=== PATIENT | male | born 1965 | race African-American/Black ===

== ENCOUNTER 2016-09-01 15:46 | Emergency (ER) | payer MEDICARE, MEDICAID ==
[~2016-09-01] VITALS: Ht 177.8 cm; Wt 111.0 kg
[~2016-09-01 15:46] MED LIST: NORCO
[2016-09-01] MEDS ORDERED: KETOROLAC 60MG/2ML VIAL IM ONE (18:45)
[2016-09-01 19:15] VITALS: BP 137/81
== END 2016-09-01 20:02 | disposition home or self-care (01) ==
LOC: ER 15:47
DX: S16.1XXA Strain of muscle, fascia and tendon at neck level, initial encounter (principal); Z87.891 Personal history of nicotine dependence; V49.60XA Unspecified car occupant injured in collision with unspecified motor vehicles in traffic accident, initial encounter; Y93.89 Activity, other specified; Y99.8 Other external cause status; Y92.89 Other specified places as the place of occurrence of the external cause
CPT/HCPCS: 72040; 96372; 99284; J1885

== ENCOUNTER 2019-07-20 08:51 | Emergency (ER) | payer MEDICARE, MEDICAID ==
[~2019-07-20] VITALS: Ht 180.3 cm; Wt 100.0 kg
[2019-07-20] MEDS ORDERED: NAPROXEN 375MG TABLET PO ONE (11:15)
[2019-07-20] MEDS ORDERED: TETANUS, DIPHTHERIA, PERTUSSIS VAC/PF 0.5ML (>7YR OLD) IM ONE (11:15)
[2019-07-20] MEDS ORDERED: BACITRACIN 15GM TUBE TOP ONE (11:15)
[2019-07-20 11:40] VITALS: BP 148/85
== END 2019-07-20 11:42 | disposition home or self-care (01) ==
LOC: ER 08:51
DX: S91.331A Puncture wound without foreign body, right foot, initial encounter (principal); W52.XXXA Crushed, pushed or stepped on by crowd or human stampede, initial encounter; Y93.89 Activity, other specified; Y92.89 Other specified places as the place of occurrence of the external cause; Y99.8 Other external cause status; Z98.890 Other specified postprocedural states
CPT/HCPCS: 90471; 90715; 99283

== ENCOUNTER 2022-03-09 21:11 | Emergency (ER) | payer OTHER, MEDICAID ==
[~2022-03-09] VITALS: Ht 177.8 cm; Wt 105.0 kg
[2022-03-10] MEDS ORDERED: KETOROLAC 30MG/ML VIAL IV ONE (02:00)
[2022-03-10 02:28] LABS: CLARITY URINE CLEAR (CLEAR); COLOR URINE YELLOW (YELLOW); KETONES URINE TRACE (NEGATIVE); LEUKOCYTE ESTERASE URINE NEGATIVE (NEGATIVE); NITRITE URINE NEGATIVE (NEGATIVE); OCCULT BLOOD URINE NEGATIVE (NEGATIVE); PH URINE 5.5 (4.5-8.0); PROTEIN URINE TRACE (NEGATIVE); SPECIFIC GRAVITY URINE 1.024 (1.005-1.030); UROBILINOGEN URINE 0.2 E.U./dL (0.2-1.0)
[2022-03-10] MEDS ORDERED: ACET-2708 MT (02:44)
[2022-03-10 02:46] VITALS: BP 130/88
== END 2022-03-10 03:12 | disposition home or self-care (01) ==
LOC: ER 21:11
DX: G89.21 Chronic pain due to trauma (principal); M54.9 Dorsalgia, unspecified; Z87.828 Personal history of other (healed) physical injury and trauma; Z98.890 Other specified postprocedural states
CPT/HCPCS: 81003; 96374; 99283; J1885

== ENCOUNTER 2022-12-25 23:10 | Emergency (ER) | payer BC, MEDICAID ==
[~2022-12-25] VITALS: Ht 177.8 cm; Wt 104.0 kg
[~2022-12-25 23:10] MED LIST changes: +ACET-2708 MT
[2022-12-25 23:25] VITALS: O2SAT 99
[2022-12-26] MEDS ORDERED: NAPR-679 MT (02:20)
[2022-12-26] MEDS ORDERED: ACET-2708 MT (02:20)
[2022-12-26] MEDS ORDERED: LIDOCAINE 5% PATCH TOP SCH (02:30)
[2022-12-26] MEDS ORDERED: ACETAMINOPHEN 325MG TABLET PO ONE (02:30)
[2022-12-26] MEDS ORDERED: LIDO700A15 TP (02:40)
[2022-12-26 02:56] VITALS: BP 145/81; PULSE 73; RESP 15
== END 2022-12-26 02:58 | disposition home or self-care (01) ==
LOC: ER 23:10
DX: S80.12XA Contusion of left lower leg, initial encounter (principal); W01.0XXA Fall on same level from slipping, tripping and stumbling without subsequent striking against object, initial encounter; Y93.89 Activity, other specified; Y92.89 Other specified places as the place of occurrence of the external cause; Y99.8 Other external cause status
CPT/HCPCS: 99283

== ENCOUNTER 2025-04-02 14:40 | Emergency (ER) | payer MEDICARE, MEDICAID ==
[~2025-04-02] VITALS: Ht 180.3 cm; Wt 104.0 kg
[~2025-04-02 14:40] MED LIST changes: +LIDO-53 TP; +NAPR-679 MT; +NAPR-681 MT
[2025-04-02 14:49] VITALS: O2SAT 99
[2025-04-02] MEDS ORDERED: IBUP-2028 MT (18:43)
[2025-04-02 19:28] VITALS: BP 155/75; PULSE 66; RESP 16; TEMP 36.8; O2SAT 99
== END 2025-04-02 19:29 | disposition home or self-care (01) ==
LOC: ER 14:40
DX: R59.1 Generalized enlarged lymph nodes (principal); M25.531 Pain in right wrist; Z79.1 Long term (current) use of non-steroidal anti-inflammatories (NSAID)
CPT/HCPCS: 70490; 73130; 99284